=== PATIENT | male | born 1975 | race Caucasian/White ===

== ENCOUNTER 2023-04-12 09:31 | Outpatient (REF) | payer MEDICAID, SELFPAY ==
[2023-04-12 12:52] LABS: Alanine Aminotransferase 8 U/L (0-40); Albumin Level 4.6 g/dL (3.5-5.0); Alkaline Phosphatase 77 U/L (39-117); Aspartate Amino Transferase 16 U/L (5-37); Bilirubin Direct 0.1 mg/dL (0.0-0.5); Bilirubin Total 0.3 mg/dL (0.0-1.0); Total Protein 7.4 g/dL (6.5-8.0)
[2023-04-13 03:01] LABS: Syphilis Screen Nonreactive (Nonreactive)
[2023-04-13 03:34] LABS: HBS Num1 52.22 mIU/mL (0-7.99); HBc Num1 0.09 S/CO (0.00-0.79); HBsAGNum1 0.41 S/CO (0.00-0.99); HIV AB/AG Nonreactive (Nonreactive); HIV Num 1 0.06 S/CO (0.00-0.99); Hepatitis A Antibody IgM 0.16 Index (0-0.79); Hepatitis B Core Antibody Nonreactive (Nonreactive); Hepatitis B Surface Antigen Negative (Negative); ~HepC Num1 0.07 S/CO (0.00-0.79); ~Hepatitis A Antibody IgM Nonreactive (Nonreactive); ~Hepatitis B Surface Antibody REACTIVE (Nonreactive); ~Hepatitis C Antibody Nonreactive (Nonreactive)
[2023-04-15 04:43] LABS: TS Negative Control Passed; TS Panel A 0; TS Panel B 0; TS Positive Control Passed; TSpotTB Negative (Negative)
== END 2023-04-12 09:32 | disposition home or self-care (01) ==
LOC: HO.HHCL 09:31
PROVIDERS: Visit Provider Registered Nurse
DX: Z00.00 Encounter for general adult medical examination without abnormal findings (principal); Z11.4 Encounter for screening for human immunodeficiency virus [HIV]; Z11.1 Encounter for screening for respiratory tuberculosis
CPT/HCPCS: 36415; 80076; 86481; 86704; 86706; 86709; 86780; 86803; 87340; 87389

== ENCOUNTER 2023-09-06 09:37 | Outpatient (REF) | payer MEDICAID, SELFPAY | END 2023-09-06 09:38 | disposition home or self-care (01) | LOC: HO.HHCL 09:37 | PROVIDERS: Visit Provider Family Medicine | DX: R63.6 Underweight (principal) | CPT/HCPCS: 36415; 80053; 82043; 82570; 84134; 84443; 85025 ==

== ENCOUNTER 2023-09-27 09:03 | Outpatient (REF) | payer MEDICAID, SELFPAY ==
[2023-09-27 11:58] LABS: Cholesterol 190 mg/dL (<200); HDL Cholesterol 42 mg/dL (>40); LDL Cholesterol Calculated 122 mg/dL (<100); Triglycerides 131 mg/dL (<150)
[2023-09-27 12:13] LABS: HIV AB/AG Nonreactive (Nonreactive); HIV Num 1 0.05 S/CO (0.00-0.99)
== END 2023-09-27 09:04 | disposition home or self-care (01) ==
LOC: HO.HHCL 09:03
PROVIDERS: Visit Provider Family Medicine
DX: Z00.00 Encounter for general adult medical examination without abnormal findings (principal); Z11.4 Encounter for screening for human immunodeficiency virus [HIV]; R63.6 Underweight
CPT/HCPCS: 36415; 80061; 87389

== ENCOUNTER 2023-12-24 10:32 | Outpatient (REF) | payer MEDICAID, SELFPAY ==
[2023-12-24 12:22] LABS: Anion Gap 11 (12-20); Blood Urea Nitrogen 22 mg/dL (9-16); Calcium 9.3 mg/dL (8.4-10.2); Carbon Dioxide 26 mmol/L (22-29); Chloride 105 mmol/L (96-108); Estimated Glomerular Filt Rate > 60; Glucose Random 100 mg/dL (60-115); Iron 69 mcg/dL (45-160); Percent Iron Saturation 22 % (15-50); Potassium 4.6 mmol/L (3.3-5.1); Sodium 137 mmol/L (135-145); Total Iron Binding Capacity 309 mcg/dL (228-428); Unsaturated Iron Binding 240 ug/dL
[2023-12-24 12:40] LABS: Ferritin 130 ng/mL (20-250); Microalbum/Creatinine Ratio Ur 13.4 ug/mg cr (<30)
[2023-12-24 12:46] LABS: Folate 9.3 ng/mL (> or = 4.0); Vitamin B12 542 pg/mL (200-900)
== END 2023-12-24 10:33 | disposition home or self-care (01) ==
LOC: HO.HHCL 10:32
PROVIDERS: Visit Provider Nurse Practitioner
DX: I15.8 Other secondary hypertension (principal); D64.9 Anemia, unspecified
CPT/HCPCS: 36415; 80048; 82043; 82570; 82607; 82728; 82746; 83540

== ENCOUNTER 2024-10-27 13:32 | Outpatient (REF) | payer MEDICAID, SELFPAY ==
--- OUTSIDE RECORDS SUMMARY | 2024-10-27 15:31 | XMS_ITS | Encounter Summary ---
Author Organization [employer] Address [address] [facility] 7t [place] [address] Care Team Providers Care Printing Technician Name Role Phone Betina Rodriguez LAVELL Primary Care Provider [phone] Reason for Visit * Reason Comments Med Refill Encounter Details Date Type Department Care Team ([facility] st Contact Info) Description 03/10/2024 Refill [facility] [address] [place] [address] Doc Ivory MD [address] [place] [address] Uncomplicated opioid dependence (CMS/HCC) Social History Tobacco Use Types Packs/Day Years Used Date Smoking Tobacco: Every Day Cigarettes 0.2 10 Passive Smoke Exposure: Never Smokeless Tobacco: Never Alcohol Use Standard Drinks/Week Comments Never 0 (1 standard drink = 0.6 oz pur e alcohol) Depression Answer Date Recorded Patient Health Questionnaire-9 Score 0 09/05/2023 Patient Health Questionnaire-9 Score 0 09/05/2023 Last PHQ-9: Questionnaire Data Not on file 0 09/05/2023 Housing Stability Answer Date Recorded What is your housing situation today? I have leslee muniz 09/05/[address] you li ve. Do you have problems with any of the following? None of the above 09/05/2023 Food Insecurity Answer Date Recorded Within the past 12 months, y ou worried that your food would run out before you got money to buy more: Never True 09/05/2023 Within the past 12 months,th e food you bought just didn't last and you didn't have enough money to get more: Never True 11/2023 Transportation Answer Date Recorded In the past 12 months, has l ack of transportation kept you from medical appts, meetings, work or from getting things needed for daily living? No 09/05/2023 Utilities Answer Date Recorded In the past 12 months, has t he electric, gas, oil or water company threatened to shut off services in your home? No 09/05/2023 Depression Answer Date Recorded Patient Health Questionnaire-2 Score 0 09/05/2023 Sex and Gender Information Value Date Recorded Sex Assigned at Male 07/03/2022 10:25 AM EDT Legal Sex Male 10:25 AM EDT Gender Identity Male 07/03/2022 10:25 AM EDT Sexual Orientation Straight 07/03/2022 10 :25 AM EDT documented as of this encounter Plan of Treatment Upcoming Encounters Date Type Department Care Team (Late st Contact Info) Description 01/19/2025 1:00 PM EDT Clinical Support [facility] [address] [place] [address] Magdalena Muhammad RN documented as of this encounter Visit Diagnoses Diagnosis Uncomplicated opioid dependence (CMS/HCC) documented in this encounter Additional Health Concerns Assessment Noted Time PHQ-9 Depression Total Score: 0 09/05/19 24 9:54 AM EST documented as of this encounter Care Teams Printing Technician Relationship Specialty Start Date End Date Betina Rodriguez NP [address] [place] [address] PCP - General Family Medicine 06/08/23 Doc Peck MD [facility] Hematology Oncology [facility], [address] [place] [address] Consulting Physician Hematology and Oncology 08/03/20 documented as of this encounter
--- OUTSIDE RECORDS SUMMARY | 2024-10-27 15:31 | XMS_ITS | Encounter Summary ---
Author Organization [employer] Address [address] [facility] 7t [place] [address] Care Team Providers Care Director Operating Room Name Role Phone Betina Rodriguez LAVELL Primary Care Provider [phone] Reason for Visit * Reason Comments Med Refill Encounter Details Date Type Department Care Team ([facility] st Contact Info) Description 11/19/2023 Refill [facility] [address] [place] [address] Doc Ivory MD [address] [place] [address] Uncomplicated opioid dependence (CMS/HCC) Social History Tobacco [...] Description 01/19/2025 1:00 PM EDT Clinical Support [facility] [address] [place] [address] Magdalena Muhammad RN documented as of this encounter Visit Diagnoses Diagnosis Uncomplicated opioid dependence (CMS/HCC) documented in this encounter Additional Health Concerns Assessment Noted Time PHQ-9 Depression Total Score: 0 09/05/19 24 9:54 AM EST documented as of this encounter Care Teams Director Operating Room Relationship Specialty Start Date End Date Betina Rodriguez NP [address] [place] [address] PCP - General Family Medicine 06/08/23 Doc Peck MD [facility] Hematology Oncology [facility], [address] [place] [address] Consulting Physician Hematology and Oncology 08/03/20 documented as of this encounter
--- OUTSIDE RECORDS SUMMARY | 2024-10-27 15:31 | XMS_ITS | Encounter Summary ---
Author Organization [employer] Address [address] 7t [place] [address] Care Team Providers Care Key Filer Name Role Phone Betina Rodriguez LAVELL Primary Care Provider [phone] Encounter Details Date Type Department Care Team (Latest Contact Info) Description 10/27/2024 Travel Social History Tobacco Use Types Packs/Day Years Used Date Smoking Tobacco: Every Day Cigarettes 0.2 10 Passive Smoke Exposure: Never Smokeless Tobacco: Never Alcohol Use Standard Drinks/Week Comments Never 0 (1 standard drink = 0.6 oz pur e alcohol) Depression Answer Date Recorded Patient Health Questionnaire-9 Score 2 03/26/2024 Patient Health Questionnaire-9 Score 2 03/26/2024 Last PHQ-9: Questionnaire Data Not on file 0 03/26/2024 Housing Stability Answer Date Recorded What is [...] Date Recorded Patient Health Questionnaire-2 Score 0 03/26/2024 Sex and Gender Information Value Date Recorded Sex Assigned at Male 07/03/2022 10:25 AM EDT Legal Sex Male 10:25 AM EDT Gender Identity Male 07/03/2022 10:25 AM EDT Sexual Orientation Straight 07/03/2022 10 :25 AM EDT documented as of this encounter Plan of Treatment Upcoming Encounters Date Type Department Care Team (Late st Contact Info) Description 01/19/2025 1:00 PM EDT Clinical Support [facility] [address] [place] [address] Magdalena Muhammad RN documented as of this encounter Visit Diagnoses Not on filedocumented in this encounter Additional Health Concerns Assessment Noted Time PHQ-9 Depression Total Score: 2 03/26/20 24 9:18 AM EDT documented as of this encounter Care Teams Key Filer Relationship Specialty Start Date End Date Betina Rodriguez NP [address] [place] [address] PCP - General Family Medicine 06/08/23 Doc Peck MD [facility] Hematology Oncology [facility], [address] [place] [address] Consulting Physician Hematology and Oncology 08/03/20 documented as of this encounter
--- OUTSIDE RECORDS SUMMARY | 2024-10-27 15:31 | XMS_ITS | Encounter Summary ---
Author Organization [employer] Address [address] [facility] 7t [place] [address] Care Team Providers Care Burial Vault Setter Name Role Phone Betina Rodriguez LAVELL Primary Care Provider [phone] Reason for Visit * Reason Comments Med Refill Encounter Details Date Type Department Care Team ([facility] st Contact Info) Description 08/25/2024 Refill [facility] [address] [place] [address] Doc Ivory MD [address] [place] [address] Uncomplicated opioid dependence (CMS/HCC) Social History Tobacco [...] Description 01/19/2025 1:00 PM EDT Clinical Support [facility] [address] [place] [address] Magdalena Muhammad RN documented as of this encounter Visit Diagnoses Diagnosis Uncomplicated opioid dependence (CMS/HCC) documented in this encounter Additional Health Concerns Assessment Noted Time PHQ-9 Depression Total Score: 2 03/26/20 24 9:18 AM EDT documented as of this encounter Care Teams Burial Vault Setter Relationship Specialty Start Date End Date Betina Rodriguez NP [address] [place] [address] PCP - General Family Medicine 06/08/23 Doc Peck MD [facility] Hematology Oncology [facility], [address] [place] [address] Consulting Physician Hematology and Oncology 08/03/20 documented as of this encounter
--- OUTSIDE RECORDS SUMMARY | 2024-10-27 15:31 | XMS_ITS | Encounter Summary ---
Author Organization [employer] [facility] Address [address] [place] [address] 7t [place] [address] Care Team Providers Care Players [employer] Representative Name Role Phone Rajwinder Oglesby Laura MANAGER SECURITY Primary Care Provider [phone] Betina Rodriguez RENEWABLE ENERGY TRADER Primary Care Provider [phone] Encounter Details Date Type Department Care Team ([facility] Contact Info) Description 09/15/2022 Orders Only [facility] MED[facility]INE [address] [place] [id number] Magdalena Muhammad RN Social History Tobacco Use Types Packs/Day Years Used Date Smoking Tobacco: Every Day Cigarettes 0.3 10 Passive Smoke Exposure: Never Alcohol Use Standard Drinks/Week Comments Never 0 (1 standard drink = 0.6 oz pur e alcohol) Depression Answer Date Recorded Patient Health Questionnaire-9 Score 0 08/22/2022 Depression Answer Date Recorded Patient Health Questionnaire-2 Score 0 08/22/2022 Sex and Gender Information Value Date Recorded Sex Assigned at Male 07/03/2022 10:25 AM EDT Legal Sex Male 10:25 AM EDT Gender Identity Male 07/03/2022 10:25 AM EDT Sexual Orientation Straight 07/03/2022 10 :25 AM EDT COVID-19 Exposure Response Date Recorded In the last 10 days, have yo u been in contact with someone who was confirmed or suspected to have Coronavirus/COVID-19? No / Unsure 09/05/2022 10:00 AM EST documented as of this encounter Plan of Treatment Upcoming Encounters Date Type Department Care Team ([facility] Contact Info) Description 01/19/2025 1:00 PM EDT Clinical Support [facility] [address] [place] [address] Enko, Magdalena, RN documented as of this encounter Visit Diagnoses Not on filedocumented in this encounter Additional Health Concerns Assessment Noted Time PHQ-9 Depression Total Score: 0 08/22/20 22 1:12 PM EST documented as of this encounter Care Teams Players Club Representative Relationship Specialty Start Date End Date Rajwinder Oglesby FNP PCP - General Family Medicine 07/22/21 06/07/23 Betina Rodriguez NP [address] [place] [address] PCP - General Family Medicine 06/08/23 Doc Peck MD [facility] Hematology Oncology [facility], [address] [place] [address] Consulting Physician Hematology and Oncology 08/03/20 documented as of this encounter
--- OUTSIDE RECORDS SUMMARY | 2024-10-27 15:31 | XMS_ITS | Encounter Summary ---
Author Organization [employer] Address [address] [facility] 7t [place] [address] Care Team Providers Care Analytical Chemistry Teacher Name Role Phone Rajwinder Oglesby Laura INTENSIVE CARE MEDICINE SPECIALIST Primary Care Provider [phone] Betina Rodriguez LONG WINDER TENDER Primary Care Provider [phone] Encounter Details Date Type Department Care Team (Late st Contact Info) Description 09/15/2022 Orders Only [facility] MED[facility]INE [address] [place] [id number] Magdalena Muhammad RN Opioid type dependence, continuous (CMS/HCC) (Primary Dx) Social History Tobacco Use Types Packs/Day Years [...] Encounters Date Type Department Care Team (Late Contact Info) Description 01/19/2025 1:00 PM EDT Clinical Support [facility] [address] [place] [phone] Magdalena Muhammad, RN Scheduled Orders Name Type Priority Associated Diagnoses Orde r Schedule Hepatic Function Panel Lab Routine Opioid type dependence, continuous (CMS/HCC) Expected: 09/15/2022 (Approximate), Expires: 09/15/2023 Hepatitis C Antibody with Reflex to HCV, RNA, Quantitative, Real-Time PCR Lab Routine Opioid type dependence, continuous (CMS/HCC) Expected: 09/15/2022 (Approximate), Expires: 09/15/2023 HIV-1/2 Antigen and Antibodies, Fourth Generation, with Reflexes Lab Routine Opioid type dependence, continuous (CMS/HCC) Expected: 09/15/2022 (Approximate), Expires: 09/15/2023 QUANTIFERON TB GOLD Lab Routine Opioid type dependence, continuous (CMS/HCC) Expected: 09/15/2022 (Approximate), Expires: 09/15/2023 RPR (Monitor) with Reflex to??Titer Lab Routine Opioid type dependence, continuous (CMS/HCC) Expected: 09/15/2022 (Approximate), Expires: 09/15/2023 documented as of this encounter Visit Diagnoses Diagnosis Opioid type dependence, continuous (CMS/HCC)- Primary Opioid type dependence, continuous documented in this encounter Additional Health Concerns Assessment Noted Time PHQ-9 Depression Total Score: 0 08/22/20 22 1:12 PM EST documented as of this encounter Care Teams Analytical Chemistry Teacher Relationship Specialty Start Date End Date Rajwinder Oglesby FNP PCP - General Family Medicine 07/22/21 06/07/23 Betina Rodriguez NP [address] [place] [address] PCP - General Family Medicine 06/08/23 Doc Peck MD [facility] Hematology Oncology [facility], [address] [place] [address] Consulting Physician Hematology and Oncology 08/03/20 documented as of this encounter
--- OUTSIDE RECORDS SUMMARY | 2024-10-27 15:31 | XMS_ITS | Clinical Summary ---
Author Organization [employer] Address [address] [facility] 7[address] [place] [address] Care Team Providers Care Health Records Technology Teacher Name Role Phone Michael Betina LAVELL Primary Care Provider [phone] Allergies Active Allergy Reactions Criticality Noted Date Comments Food 07/31/2022 seafood Shellfish Allergy 01/03/2023 Medications dasatinib (Sprycel) 140 MG chemo tablet Take 1 tablet by mouth 1 (one) time each day. 022 Active Nutritional Supplements (Ensure Plus) liquid drink 1 can 3 times a day as meal supplement 017 Active Blood Pressure kit Active naloxone (Narcan) 4 mg/0.1 mL nasal spray Administer 4 mg into affected nostril(s) if needed for opioid reversal. May repeat every 2-3 minutes if needed, alternating nostrils, until medical assistance becomes available. Active ferrous gluconate (Fergon) 324 (37.5 Fe) MG tabletIndicatio ns:Anemia, unspecified type Take 1 tablet (324 mg) by mouth every other day. With vitamin C on an empty stomach 60 tablet 1 024 Active Ascorbic Acid (vitamin C) 250 MG tabletIndicatio ns:Anemia, unspecified type Take 1 tablet (250 mg) by mouth every other day. With iron on an empty stomach 15 tablet 11 024 2024 Active docusate sodium (Colace) 100 MG capsuleIndicati ons:Uncomplicat ed opioid dependence (CMS/HCC) Take 1 capsule (100 mg) by mouth every 12 (twelve) hours. Prn constipation 60 capsule 3 024 Active olmesartan (BENIcar) 20 MG tabletIndicatio ns:Other secondary hypertension TAKE 1 TABLET BY MOUTH EVERY DAY IN THE MORNING 90 tablet 1 025 Active cetirizine (ZyrTEC) 10 MG tabletIndicatio ns:Seasonal allergies Take 1 tablet (10 mg) by mouth Once per day. 90 tablet 025 2024 Active ibuprofen 400 MG tabletIndicatio ns:Chronic myeloid leukemia (CMS/HCC) Take 1 tablet (400 mg) by mouth every 6 (six) hours if needed for moderate pain. 120 tablet 025 Active buprenorphine-n aloxone (Suboxone) 12-3 MG per sublingual filmIndications :Uncomplicated opioid dependence (CMS/HCC) Place 1 Film under the tongue Once per day. Do not start before October 21, 2024. 28 Film 1 025 2024 Active buprenorphine-n aloxone (Suboxone) 12-3 MG per sublingual filmIndications :Uncomplicated opioid dependence (CMS/HCC) Place 1 Film under the tongue Once per day. 28 Film 1 024 2024 Discontinued(R eorder (will not trigger notification to Pharmacy)) Active Problems Problem Noted Date Diagnosed Date Colon cancer screening 03/27/2024 Assessment & Plan (04/03/2024 9:26 AM EDT): -patient encouraged to undergo testing via colonoscopy given current treatment for CML and13% false positive and 8% false negative ratehowever he declined. Would rather test via cologuard -informed of need to undergo colonoscopy if cologuard positive and verbalize understanding. -will re-order kit and have it sent to alternative address he provided -results will be communicated upon receipt Anemia 03/13/2024 Assessment & Plan (03/27/2024 12:15 PM EDT): -followed by oncology. Will attempt to obtain recent labs -med refill provided Assessment & Plan (03/17/2024 6:25 PM EDT): Lab Results Component Value Date WBC 6.9 09/06/2023 HGB 11.9 (L) 09/06/2023 HCT 36.3 (L) 09/06/2023 MCV 92.6 09/06/2023 PLT 287 09/06/2023 -anemia is likely due to CML -labs ordered for further investigation Routine adult health maintenance 09/26/2023 Assessment & Plan (03/27/2024 12:29 PM EDT): -will have pt scheduled subsequent hepB doses to be obtained at vaccine clinic Assessment & Plan (03/13/2024 3:15 PM EDT): -hepatitis B and PCV 20 vax given today Assessment & Plan (09/26/2023 1:58 PM EST): -pt inquiring about GI referral status for colonoscopy from last visit. Waiting on [facility] for appointment availability. Phone number to specialist office provided for follow-up -declined flu and pneumonia vaccines Underweight 04/06/2023 Assessment & Plan (04/03/2024 9:28 AM EDT): -likely resulting from ongoing CML treatment -continue small frequent meals as tolerated making healthy choices -advised to inquire from oncologist for potential appetite stimulant medication Assessment & Plan (09/05/2023 11:56 AM EST): In the setting of CML, he current using nutritional supplementation. Will send labs. Assessment & Plan (04/29/2023 10:25 PM EDT): Care managed by Oncology Continue Sprycel 140mg daily Refill DME Ensure, Vanilla F/u PRN Other secondary hypertension 08/22/2022 Overview (08/22/2022): Secondary to Sprycel use Assessment & Plan (03/13/2024 3:14 PM EDT): -BP stable on benicar 20 mg -continue daily monitoring -microalbuminuria: repeat testing ordered today -elevated BUN which may be due to oral chemo treatment Lab Results Component Value Date BUN 22 (H) 09/06/2023 -increased hydration advised. Will re-evaluate with next labs -follow-up in 3-4 months on chronic conditions Assessment & Plan (09/26/2023 1:57 PM EST): -BP stable on benicar 20 mg -continue daily monitoring -slight microalbuminuria: 36.1 on (09/05/23) in the setting of normal Cr (1.01). Recheck in 3 months and consider nephrology referral is still elevated -slightly elevated BUN, increased hydration advised. Will re-evaluate with next labs -follow-up in 3-4 months on chronic conditions Assessment & Plan (09/05/2023 11:56 AM EST): Uncontrolled. Reports elevated BP due to Sprycel. Recommended monitoring at home and bring records to PCP, scheduled f./up appt. Future Appointments Date Time Provider Department Center 09/26/2023 9:00 AM Betina Rodriguez NP MEDICINE [facility] 10/01/2023 1:15 PM Magdalena Muhammad RN MEDICINE [facility] Assessment & Plan (04/29/2023 10:21 PM EDT): Continue Olmesartan 20mg daily Check at home PRN Monitor for sx of hypotension and hypertension Followup 3 months or sooner PRN Assessment & Plan (08/22/2022 1:34 PM EST): Pt has no BP machine or log with him. Unable to check BP status. Will followup in 2 weeks in person to monitor BP If BP still > 140/90 will increase Lisinopril dose to 20mg. Uncomplicated opioid dependence 07/31/2022 Overview (04/29/2023): In remission Stable with Suboxone 12-3mg 1 film daily Managed by OBAT Provider, CRS Tobacco dependence syndrome 07/31/2022 Assessment & Plan (04/29/2023 10:22 PM EDT): Declines NRT F/u PRN with new PCP History of blood transfusion 07/31/2022 Astigmatism of both eyes 04/06/2022 Macular subretinal hemorrhage 04/06/2022 Anxiety 2021 Chronic myeloid leukemia 07/22/2021 Overview (03/18/2023): Care managed by Oncology Dasatinib 140 mg daily F/u 3 months Assessment & Plan (03/13/2024 3:03 PM EDT): -followed by oncology every 6 months -continues on Dasatinib 140 mg -ibuprofen refilled for intermittent pain Assessment & Plan (04/29/2023 10:25 PM EDT): Care managed by Oncology Continue Sprycel 140mg daily Refill DME Ensure, Vanilla F/u PRN Encounters Date Type Department Care Team Description 10/27/2024 2:00 PM EST Office Visit [facility] [address] [place] [phone] Doc Ivory MD Uncomplicated opioid dependence ([facility]/HCC) (Primary Dx) 10/27/2024 Travel 10/14/2024 Refill [facility] [address] [place] [id number] Magdalena Muhammad RN Uncomplicated opioid dependence (CMS/HCC) 10/14/2024 Refill [facility] [address] [place] [address] Magdalena Muhammad RN Uncomplicated opioid dependence ([facility]/HCC) 10/14/2024 Refill [facility] [address] [place] [phone] Magdalena Muhammad RN 10/06/2024 Orders Only [facility] [address] [place] [phone] Magdalena Muhammad RN Uncomplicated opioid dependence (CMS/HCC) 09/26/2024 10:15 AM EST Office Visit [facility] [address] [place] [phone] Betina Rodriguez NP Other secondary hypertension (Primary Dx); Chronic myeloid leukemia (CMS/HCC); Other hyperlipidemia; Dietary counseling; Exercise counseling; Routine adult health maintenance 09/26/2024 Travel 09/19/2024 Refill [facility] [address] [place] [address] Betina Rodriguez NP Seasonal allergies 09/19/2024 Telephone [facility] [address] [place] [phone] Sergey JuveJOHAN galindo chartprep 09/08/2024 Refill [facility] [address] [place] [address] Betina Rodriguez NP Other secondary hypertension 09/01/2024 2:00 PM EST Telemedicine [facility] [address] [place] [address] Doc Ivory MD Uncomplicated opioid dependence (CMS/HCC) (Primary Dx) 09/01/2024 Travel 08/25/2024 Refill [facility] [address] [place] [address] Doc Ivory MD Uncomplicated opioid dependence (CMS/HCC) 08/22/2024 Refill [facility] [address] [place] [address] Magdalena Muhammad RN Uncomplicated opioid dependence ([facility]/HCC) 08/22/2024 Refill [facility] [address] [place] [address] Magdalena Muhammad RN from Last 3 Months Immunizations Name Administration Dates Next Due Hep B, adult 12/21/2023 Moderna Covid-19 Vaccine 12+ 03/29/2021,03/01/20 21 Pneumococcal Conjugate PCV 20 12/21/2023 Tdap 10/13/2016 Social History Tobacco Use Types Packs/Day Years Used Date Smoking Tobacco: Every Day Cigarettes 0.2 10 Passive Smoke Exposure: Never Smokeless Tobacco: Never Tobacco Cessation:Ready to Q uit: Not Asked; Counseling Given: Not Answered Alcohol Use Standard Drinks/Week Comments Never 0 [...] Orientation Straight 07/03/2022 10 :25 AM EDT Last Filed Vital Signs Vital Sign Reading Time Taken Comments Blood Pressure 129/75 09/26/2024 9:59 AM EST Pulse 78 09/26/2024 9:59 AM EST Temperature 37.5 ??C (99.5 ??F) 09/26/2024 9:59 AM ES T Respiratory Rate 21 09/26/2024 9:59 AM EST Oxygen Saturation 97% 09/26/2024 9:59 AM EST Inhaled Oxygen Concentration - - Weight 59.9 kg (132 lb) 09/26/2024 9:59 AM EST Height 180.3 cm (5' 11 ) 09/26/2024 9:59 AM EST Body Mass Index 18.41 09/26/2024 9:59 AM EST Plan of Treatment Upcoming Encounters Date Type Department Care Team (Late st Contact Info) Description 01/19/2025 1:00 PM EDT Clinical Support [facility] [address] [place] [address] Magdalena Muhammad, [employer] Health Maintenance Due Date Last Done Comments CT Colonography 1976 Colonoscopy 1976 Colorectal Cancer Screening 1976 FIT DNA/Cologuard 1976 FIT 1976 FOBT 1976 Sigmoidoscopy 1976 Family Planning (PISQ) 1991 Hepatitis A Vaccines (1 of 2 - Risk 2-dose series) 1995 Zoster Vaccines (1 of 2) 1995 COVID-19 Vaccine (3 - Modern a risk series) 04/26/2021 03/29/2021, 03/01/2021 Influenza Vaccine (#1) 2024 SDOH Screening 09/05/2024 09/05/2023 Depression Screening 03/26/2025 03/26/2024, 03/26/2024 Alcohol/Substance Use Screening 09/26/2025 09/26/2024 Tobacco Screening 10/27/2025 10/27/2024 DTaP/Tdap/Td Vaccines (2 - T d or Tdap) 10/13/2026 10/13/2016 Lipid Panel 09/27/2028 09/27/2023 RSV Patients and Patients Aged 60 years or older (1 - 1-dose 75+ series) 2051 Hepatitis C Screening Completed 04/12/2023 , 08/05/2021 HIV Screening Completed 09/27/2023, 04/12/2023, 08/05/2021 Hepatitis B Vaccines Discontinued 12/21/2023 Pneumococcal Vaccine: Pediatrics (0 to 5 Years) and At-Risk Patients (6 to 49) Years) Completed 12/21/2023 HIB Vaccines Aged Out No longer eligi ble based on patient's age to complete this topic HPV Vaccines Aged Out No longer eligi ble based on patient's age to complete this topic IPV Vaccines Aged Out No longer eligi ble based on patient's age to complete this topic Meningococcal Vaccine Aged Out No fiona yelena eligible based on patient's age to complete this topic RSV under 20 months Aged Out No longe r eligible based on patient's age to complete this topic Rotavirus Vaccines Aged Out No longer eligible based on patient's age to complete this topic Procedures Procedure Name Priority Date/Time Associated Diagnosis Comments POCT NEHAL-14 URINE DRUG SCREEN Routine 10/27/2024 1:46 PM EST Uncomplicated opioid dependence (CMS/HCC) LIPID PANEL, STANDARD Routine 09/27/2023 9:45 AM EST Underweight HIV 1/2 ANTIGEN/ANTIBODY, FOURTH GENERATION W/RFL Routine 09/27/2023 9:08 AM EST HEPATITIS PANEL, GENERAL Routine 04/12/2023 9:35 AM EDT Health care maintenance from Last 3 Months or Most Recently Relevant to Health Maintenance Results * POCT NEHAL-14 Urine Drug Screen (10/27/2024 1:46 PM EST) THC Positive Cocaine Screen, Urine Negative Opiate Screen, Urine Negative Methamphetamine Screen Urine Negative Amphetamine Screen, Urine Negative Benzodiazepines Screen, Urine Negative Barbiturate Screen, Urine Negative Methadone Screen, Urine Negative Buprenophine Screen, Urine Positive TCA, Urine Negative MDMA Urine Negative ng/mL Oxycodone Screen, Urine Negative Phencyclidine (PCP), Urine Negative Propoxyphene, Urine Negative Fentanyl, Urine Negative Urine Urine specimen obtained by clean catch procedure / Unknown 10/27/2024 1:46 PM EST Doc Ivory MD POINT OF CARE TEST ENTER/EDIT OR DERABLES Final Result * (ABNORMAL) Lipid Panel, Standard (09/27/2023 9:45 AM EST) Triglycerides 131 <150 mg/dL [facility] Comment:Desirable Triglyceri de: less than 150 mg/dLBorderline High Triglyceride 150-199 mg/dLHigh Triglyceride: 200-499 mg/dLVery High Triglyceride: greater than or equal to 5OO mg/dL Cholesterol 190 <200 mg/dL [facility] Comment:Desirable Cholestero l: less than 200 mg/dLBorderline High Cholesterol: 200-239 mg/dLHigh Cholesterol: greater than 239 mg/dL LDL Cholesterol Calculated 122(H) <100 mg/dL [facility] Comment:Desirable LDL: less than 100 mg/dLNear Optimal/Above Optimal LDL: 110- 129 mg/dLBorderline High LDL: 130-159 mg/dLHigh LDL: 160-189 mg/dLVery High LDL: greater than or equal to 190 mg/dL HDL Cholesterol 42 >40 mg/dL [facility] Comment:Desirable HDL: great er than 40 mg/dL Note: This HDL assay may give artificially low results in patients with liver disease. Blood Venous blood specimen / Unknown 09/27/2023 9:45 AM EST 09/27/2023 11:36 AM EST us Yuliana Mojica MD LAB BLOOD ORDERABLES Final Re sult Performing Organization Address [facility] Co de Phone Number [facility] [address] [place] [address] [phone] * HIV-1/2 Antigen and Antibodies, Fourth Generation, with Reflexes (09/27/2023 9:08 AM EST) HIV AB/AG Nonreactive Nonreactive [facility] Comment:HIV-1 p24 Ag and/or HIV-1/HIV-2 Ab not detected.A test result that is nonreactive does not exclude thepossibility of exposure to or infection with HIV-1 and/orHIV-2. Nonreactive results in this assay for individualswith prior exposure to HIV-1 and/or HIV-2 may be due toantigen and antibody levels that are below the limit ofdetection of this assay.The Proterro HIV Ag/Ab Combo assay result andsupplemental assay results should be interpreted inconjunction with the patient's clinical presentation,history and other laboratory results. If the results areinconsistent with clinical evidence, additional testing issuggested to confirm the result. 09/27/2023 9:08 AM EST 09/27/2023 11:36 AM EST us Yuliana Mojica MD LAB BLOOD ORDERABLES Final Re sult Performing Organization Address City/[facility]/ZIP Co de Phone Number [facility] [address] [place] [address] [phone] Hepatitis Panel, General (04/12/2023 9:35 AM EDT) Hepatitis A IgM Nonreactive Nonreactive [facility] Comment:IgM antibodies to PRASAD V not detected; does not exclude earlyacute or recovered HAV infection. ~Hepatitis B Surface Antibody REACTIVE Nonreactive [facility] Comment:REACTIVE: > 11.99 mI U/mL Hepatitis B Core Antibody Nonreactive Nonreactive [facility] Hepatitis C Antibody Nonreactive Nonreactive [facility] Comment:Antibodies to HCV no t detected; does not exclude early acuteHCV infection. Hepatitis B Surface Ag Negative Negative [facility] Blood 04/12/2023 9:35 AM EDT 04/12/2023 11:32 AM EDT Rajwinder Sanchez Mendel CEMENT STORAGE WORKER LAB BLOOD ORDERABLES Final Result [facility] [address] [place] [address] [phone] from Last 3 Months or Most Recently Relevant to Health Maintenance Insurance [facility] C3 HSN FULL Care Teams Health Records Technology Teacher Relationship Specialty Start Date End Date Betina Rodriguez NP [address] [place] [id number] PCP - General Family Medicine 06/08/23 Doc Peck MD [facility] Hematology Oncology [facility], [address] [place] [address] Consulting Physician Hematology and Oncology 08/03/20
--- OUTSIDE RECORDS SUMMARY | 2024-10-27 15:31 | XMS_ITS | Encounter Summary ---
Author Organization [employer] Address [address] [facility] [address] [place] [address] Care Team Providers Care Boiler House Mechanic Name Role Phone Betina Rodriguez LAVELL Primary Care Provider [phone] Reason for Visit * Reason Onset Date Comments Med Refill 10/14/2024 Encounter Details Date Type Department Care Team ([facility] st Contact Info) Description 10/14/2024 Refill [facility] [address] [place] [address] Magdalena Muhammad RN Social History Tobacco Use [...] Description 01/19/2025 1:00 PM EDT Clinical Support [facility] [address] [place] [address] Magdalena Muhammad RN documented as of this encounter Visit Diagnoses Not on filedocumented in this encounter Additional Health Concerns Assessment Noted Time PHQ-9 Depression Total Score: 2 03/26/20 24 9:18 AM EDT documented as of this encounter Care Teams Boiler House Mechanic Relationship Specialty Start Date End Date Betina Rodriguez NP [address] [place] [address] PCP - General Family Medicine 06/08/23 oDc Peck MD [facility] Hematology Oncology [facility], [address] [place] [address] Consulting Physician Hematology and Oncology 08/03/20 documented as of this encounter
--- OUTSIDE RECORDS SUMMARY | 2024-10-27 15:31 | XMS_ITS | Encounter Summary ---
Author Organization [employer] Address [address] [place] [address] [address] [place] [address] Care Team Providers Care Nursing Informatics Specialist Name Role Phone Rajwinder OglesbyP Primary Care Provider [phone] Betina Rodriguez NP Primary Care Provider [phone] Reason for Visit * Reason Comments Med Refill Encounter Details Date Type Department Care Team ([facility] Contact Info) Description 09/03/2022 Refill [facility] [address] [place] [address] Rajwinder Oglesby FNP [address] [place] [address] Dept [place] [address] Social History Tobacco Use Types Packs/Day Years Used Date Smoking Tobacco: Never Passive Smoke Exposure: Never Alcohol Use Standard [...] Upcoming Encounters Date Type Department Care Team ([facility] Contact Info) Description 01/19/2025 1:00 PM EDT Clinical Support [facility] [address] [place] [address] Magdalena Muhammad RN documented as of this encounter Visit Diagnoses Not on filedocumented in this encounter Additional Health Concerns Assessment Noted Time PHQ-9 Depression Total Score: 0 08/22/20 22 1:12 PM EST documented as of this encounter Care Teams Nursing Informatics Specialist Relationship Specialty Start Date End Date Rajwinder Oglesby FNP PCP - General Family Medicine 07/22/21 06/07/23 Betina Rodriguez NP [address] [place] [address] PCP - General Family Medicine 06/08/23 Doc Peck MD [facility] Hematology Oncology [facility], [address] [place] [phone] Consulting Physician Hematology and Oncology 08/03/20 documented as of this encounter
--- OUTSIDE RECORDS SUMMARY | 2024-10-27 15:31 | XMS_ITS | Encounter Summary ---
Author Organization [employer] Address [address] [facility] 7t [place] [address] Care Team Providers Care Mri Ct Tech Name Role Phone Michael Betina LAVELL Primary Care Provider [phone] Reason for Visit * Reason Comments OBAT Encounter Details Date Type Department Care Team (Latest Contact Info) Description 10/27/2024 2:00 PM EST Office Visit [facility] MEDICINE [address] [place] [address] Doc Ivory MD [address] [place] [address] Uncomplicated opioid dependence (CMS/HCC) (Primary Dx) Social History Tobacco Use [...] AM EDT documented as of this encounter Progress Notes * Doc Ivory MD - 10/27/2024 2:00 PM EST Subjective Patient ID: Gomez Lopez is a 49 y.o. male. HPI Patient has been in the MAT program for 4 years 2 months. Intake date: 08/04/21. Current Suboxone dose of 12/3 mg daily with appointments on a 8 week schedule. Behavioral health provider: Roderick cricket coach: Tu LFTs last done 10/27/2024 Hep A status: Immune Hep B status: Immune Hep C status: non-reactive 04/12/23 HIV status: non-reactive 04/12/23 Last PCP appt: 03/26/24 JOHAN BOSS reviewed by provider Amos reviewed. Taking Suboxone as prescribed. No illicit substances. Colace relieves constipation, states does not need refill. States at next visit would like to discuss reducing Suboxone dose. Oral chemotherapy dose for CML causes him to feel tired at times. Has oncology katharina't. Q 6 months. Has [facility] therapist Supriya in [place]. Declines speaking with recovery operator helper. Smokes weed daily. No EtOH. Smokes 3 cigarettes/day. Declines smoking cessation assistance. Lives with mother. Has 5 children. 13 y.o. daughter lives with her mother Others are adults. Suboxone dental care discussed; given written instructions at last visit. The following portions of the chart were reviewed this encounter and updated as appropriate: Review of Systems Constitutional: Negative for fever. Respiratory: Negative for shortness of breath. Cardiovascular: Negative for chest pain. Gastrointestinal: Negative for abdominal pain. Skin: Negative for rash. Neurological: Negative for headaches. Objective Physical Exam Vitals and nursing note reviewed. Constitutional: Appearance: Normal appearance. HENT: Head: Normocephalic and atraumatic. Nose: Nose normal. Eyes: Conjunctiva/sclera: Conjunctivae normal. Pupils: Pupils are equal, round, and reactive to light. Pulmonary: Effort: Pulmonary effort is normal. Skin: General: Skin is warm and dry. Neurological: Mental Status: He is alert. Gait: Gait is intact. Psychiatric: Mood and Affect: Mood and affect normal. Behavior: Behavior normal. Procedures Assessment/Plan Uncomplicated opioid dependence (CMS/HCC) Recovery support, harm reduction (including Narcan) and behavioral health attendance reviewed. Continue Suboxone 12/3 mg on 8 week schedule. documented in this encounter Plan of Treatment Upcoming Encounters Date Type Department Care Team (Late st Contact Info) Description 01/19/2025 1:00 PM EDT Clinical Support [address] [address] Magdalena Muhammad RN documented as of this encounter Procedures Procedure Name Priority Date/Time Associated Diagnosis Comments POCT NEHAL-14 URINE DRUG SCREEN Routine 10/27/2024 1:46 PM EST Uncomplicated opioid dependence (CMS/HCC) documented in this encounter Results * POCT NEHAL-14 Urine Drug Screen [...] CARE TEST ENTER/EDIT OR DERABLES Final Result documented in this encounter Visit Diagnoses Diagnosis Uncomplicated opioid dependence (CMS/HCC)- Primary documented in this encounter Additional Health Concerns Assessment Noted Time PHQ-9 Depression Total Score: 2 03/26/20 24 9:18 AM EDT documented as of this encounter Care Teams Mri Ct Tech Relationship Specialty Start Date End Date Betina Rodriguez NP [address] [place] [address] PCP - General Family Medicine 06/08/23 Doc Peck MD [facility] Hematology Oncology [facility], [address] [place] [address] Consulting Physician Hematology and Oncology 08/03/20 documented as of this encounter
--- OUTSIDE RECORDS SUMMARY | 2024-10-27 15:31 | XMS_ITS | Encounter Summary ---
Author Organization [employer] Address [address] [facility] [address] 7t [place] [address] Care Team Providers Care Visual Manager Name Role Phone Betina Rodriguez LAVELL Primary Care Provider [phone] Reason for Visit * Reason Onset Date Comments Med Refill 10/14/2024 Encounter Details Date Type Department Care Team ([facility] st Contact Info) Description 10/14/2024 Refill [facility] MEDICINE [address] [place] [address] Magdalena Muhammad RN Uncomplicated opioid dependence (CMS/HCC) Social History Tobacco [...] Description 01/19/2025 1:00 PM EDT Clinical Support [facility] MEDICINE [address] [place] [address] Magdalena Muhammad RN documented as of this encounter Visit Diagnoses Diagnosis Uncomplicated opioid dependence (CMS/HCC) documented in this encounter Additional Health Concerns Assessment Noted Time PHQ-9 Depression Total Score: 2 03/26/20 24 9:18 AM EDT documented as of this encounter Care Teams Visual Manager Relationship Specialty Start Date End Date Betina Rodriguez NP [address] [place] [address] PCP - General Family Medicine 06/08/23 Doc Peck MD [facility] Hematology Oncology [facility], [address] [place] [address] Consulting Physician Hematology and Oncology 08/03/20 documented as of this encounter
--- OUTSIDE RECORDS SUMMARY | 2024-10-27 15:31 | XMS_ITS | Encounter Summary ---
Author Organization [employer] Address [address] [facility] [address] 7t [place] [address] Care Team Providers Care Latin Dance Instructor Name Role Phone Michael Betina LAVELL Primary Care Provider [phone] Encounter Details Date Type Department Care Team ([facility] st Contact Info) Description 10/06/2024 Orders Only [facility] MEDICINE [address] [place] [address] Magdalena Muhammad RN Uncomplicated opioid dependence (CMS/[facility]) Social History Tobacco Use Types Packs/Day Years [...] Description 01/19/2025 1:00 PM EDT Clinical Support [facility] MEDICINE [address] [place] [address] Magdalena Muhammad RN Scheduled Orders Name Type Priority Associated Diagnoses Orde r Schedule Hepatic Function Panel Lab Routine Uncomplicated opioid dependence (CMS/HCC) Expected: 10/06/2024 (Approximate), Expires: 10/06/2025 Hepatitis C Antibody with Reflex to HCV, RNA, Quantitative, Real-Time PCR Lab Routine Uncomplicated opioid dependence (CMS/HCC) Expected: 10/06/2024 (Approximate), Expires: 10/06/2025 HIV-1/2 Antigen and Antibodies, Fourth Generation, with Reflexes Lab Routine Uncomplicated opioid dependence (CMS/HCC) Expected: 10/06/2024 (Approximate), Expires: 10/06/2025 Syphilis Screen Lab Routine Uncomplicated opioid dependence (CMS/HCC) Expected: 10/06/2024 (Approximate), Expires: 10/06/2025 T-[email or web address] Lab Routine Uncomplicated opioid dependence (CMS/HCC) Expected: 10/06/2024 (Approximate), Expires: 10/06/2025 documented as of this encounter Visit Diagnoses Diagnosis Uncomplicated opioid dependence (CMS/HCC) documented in this encounter Additional Health Concerns Assessment Noted Time PHQ-9 Depression Total Score: 2 03/26/20 24 9:18 AM EDT documented as of this encounter Care Teams Latin Dance Instructor Relationship Specialty Start Date End Date Betina Rodriguez NP [address] [place] [address] PCP - General Family Medicine 06/08/23 Doc Peck MD [facility] Hematology Oncology [facility], [facility] [place] [address] Consulting Physician Hematology and Oncology 08/03/20 documented as of this encounter
--- OUTSIDE RECORDS SUMMARY | 2024-10-27 15:31 | XMS_ITS | Encounter Summary ---
Author Organization [employer] [facility] Address [address] [place] [address] 7t [place] [address] Care Team Providers Care Launch Operator Name Role Phone Rajwinder Oglesby Larua CENTRAL OFFICE TECHNICIAN Primary Care Provider [phone] Betina Rodriguez STEEL SASH ERECTOR Primary Care Provider [phone] Encounter Details Date Type Department Care Team ([facility] Contact Info) Description 09/15/2022 Orders Only [facility] MEDICINE [address] [place] [id number] Magdalena Muhammad RN Social History Tobacco Use [...] Upcoming Encounters Date Type Department Care Team ([facility] Contact Info) Description 01/19/2025 1:00 PM EDT Clinical Support [facility] MEDICINE [address] [place] [address] Enko, Magdalena, RN documented as of this encounter Visit Diagnoses Not on filedocumented in this encounter Additional Health Concerns Assessment Noted Time PHQ-9 Depression Total Score: 0 08/22/20 22 1:12 PM EST documented as of this encounter Care Teams Launch Operator Relationship Specialty Start Date End Date Rajwinder Oglesby FNP PCP - General Family Medicine 07/22/21 06/07/23 Betina Rodriguez NP [address] [place] [address] PCP - General Family Medicine 06/08/23 Doc Peck MD [facility] Hematology Oncology [facility], [address] [place] [address] Consulting Physician Hematology and Oncology 08/03/20 documented as of this encounter
--- OUTSIDE RECORDS SUMMARY | 2024-10-27 15:31 | XMS_ITS | Encounter Summary ---
Author Organization [employer] Address [address] [facility] 7t [place] [address] Care Team Providers Care Smalltalk Developer Name Role Phone Betina Rodriguez LAVELL Primary Care Provider [phone] Reason for Visit * Reason Comments Med Refill Encounter Details Date Type Department Care Team ([facility] st Contact Info) Description 09/21/2023 Refill [facility] MEDICINE [address] [place] [address] Doc Ivory MD [address] [place] [address] Uncomplicated opioid dependence (CMS/HCC) Social History Tobacco [...] Description 01/19/2025 1:00 PM EDT Clinical Support [facility] MEDICINE [address] [place] [address] Magdalena Muhammad RN documented as of this encounter Visit Diagnoses Diagnosis Uncomplicated opioid dependence (CMS/HCC) documented in this encounter Additional Health Concerns Assessment Noted Time PHQ-9 Depression Total Score: 0 09/05/19 24 9:54 AM EST documented as of this encounter Care Teams Smalltalk Developer Relationship Specialty Start Date End Date Betina Rodriguez NP [address] [place] [address] PCP - General Family Medicine 06/08/23 Doc Peck MD [facility] Hematology Oncology [facility], [address] [place] [address] Consulting Physician Hematology and Oncology 08/03/20 documented as of this encounter
--- OUTSIDE RECORDS SUMMARY | 2024-10-27 15:31 | XMS_ITS | Encounter Summary ---
Author Organization [employer] Address [address] [facility] [address] 7t [place] [address] Care Team Providers Care Iron Setter Name Role Phone Betina Rodriguez LAVELL Primary Care Provider Reason for Visit * Reason Onset Date Comments Med Refill 10/14/2024 Encounter Details Date Type Department Care Team ([facility] st Contact Info) Description 10/14/2024 Refill [facility] MEDICINE [address] [place] [address] Magdalena Muhammad RN Uncomplicated opioid dependence (CMS/HCC) [...] Description 01/19/2025 1:00 PM EDT Clinical Support [facility] MEDICINE [address] [place] [address] Magdalena Muhammad RN documented as of this encounter Visit Diagnoses Diagnosis Uncomplicated opioid dependence (CMS/HCC) documented in this encounter Additional Health Concerns Assessment Noted Time PHQ-9 Depression Total Score: 2 03/26/20 24 9:18 AM EDT documented as of this encounter Care Teams Iron Setter Relationship Specialty Start Date End Date Betina Rodriguez NP [address] [place] [address] PCP - General Family Medicine 06/08/23 Doc Peck MD [facility] Hematology Oncology [facility], [address] [place] [address] Consulting Physician Hematology and Oncology 08/03/20 documented as of this encounter
--- OUTSIDE RECORDS SUMMARY | 2024-10-27 15:31 | XMS_ITS | Encounter Summary ---
Author Organization [employer] [facility] Address [address] [place] [address] 7 [place] [address] Care Team Providers Care Trust Clerk Name Role Phone Rajwinder Oglesby Primary Care Provider [phone] Betina Rodriguez NP Primary Care Provider [phone] Encounter Details Date Type Department Care Team (Late st Contact Info) Description 07/31/[address] [facility] MEDICINE [address] [place] [address] ProviderValentine MD Social History Tobacco Use Types Packs/Day Years Used Date Smoking Tobacco: Never Assessed Sex and Gender Information Value Date Recorded Sex Assigned at Male 07/03/2022 10:25 AM EDT Legal Sex Male 10:25 AM EDT Gender Identity Male 07/03/2022 10:25 AM EDT Sexual Orientation Straight 07/03/2022 10 :25 AM EDT documented as of this encounter Plan of Treatment Upcoming Encounters Date Type Department Care Team (Late st Contact Info) Description 01/19/2025 1:00 PM EDT Clinical Support [address] [address] Magdalena Muhammad RN documented as of this encounter Visit Diagnoses Not on filedocumented in this encounter Care Teams Trust Clerk Relationship Specialty Start Date End Date Rajwinder Oglesby FNP PCP - General Family Medicine 07/22/21 06/07/23 Betina Rodriguez NP [address] [place] [address] PCP - General Family Medicine 06/08/23 Doc Peck MD [facility] Hematology Oncology [facility], [address] [place] [address] Consulting Physician Hematology and Oncology 08/03/20 documented as of this encounter
--- OUTSIDE RECORDS SUMMARY | 2024-10-27 15:31 | XMS_ITS | Encounter Summary ---
Author Organization [email or web address] Address [address] [place] [address] 7 [place] [address] Care Team Providers Care Cafeteria Server Name Role Phone Rajwinder Oglesby TRANSPORTATION AID Primary Care Provider [phone] Betina Rodriguez GRAIN CLEANER Primary Care Provider [phone] Reason for Visit * Reason Comments Med Refill Encounter Details Date Type Department Care Team ([facility] Contact Info) Description 03/12/2023 Refill [facility] MEDICINE [address] [place] [address] Doc Ivory MD [address] [place] [address] Uncomplicated opioid dependence (CMS/HCC) Social History Tobacco [...] Upcoming Encounters Date Type Department Care Team ([facility] Contact Info) Description 01/19/2025 1:00 PM EDT Clinical Support [facility] MEDICINE [address] [place] [address] Magdalena Muhammad RN documented as of this encounter Visit Diagnoses Diagnosis Uncomplicated opioid dependence (CMS/HCC) documented in this encounter Additional Health Concerns Assessment Noted Time PHQ-9 Depression Total Score: 0 08/22/20 22 1:12 PM EST documented as of this encounter Care Teams Cafeteria Server Relationship Specialty Start Date End Date Rajwinder Oglesby FNP PCP - General Family Medicine 07/22/21 06/07/23 Betina Rodriguez NP [address] [place] [address] PCP - General Family Medicine 06/08/23 Doc Peck MD [facility] Hematology Oncology [facility], [address] [place] [address] Consulting Physician Hematology and Oncology 08/03/20 documented as of this encounter
[2024-10-27 17:21] LABS: Alanine Aminotransferase 11 U/L (0-40); Albumin Level 4.5 g/dL (3.5-5.0); Aspartate Amino Transferase 28 U/L (5-37); Bilirubin Direct < 0.2 mg/dL (0.0-0.5); Bilirubin Total 0.2 mg/dL (0.0-1.0); Total Protein 7.7 g/dL (6.5-8.0)
[2024-10-27 17:54] LABS: Alkaline Phosphatase 89 U/L (39-117)
[2024-10-28 08:41] LABS: Syphilis Screen Nonreactive (Nonreactive)
[2024-10-28 08:42] LABS: HIV AB/AG Nonreactive (Nonreactive); HIV Num 1 0.06 S/CO (0.00-0.99); ~HepC Num1 0.09 S/CO (0.00-0.79); ~Hepatitis C Antibody Nonreactive (Nonreactive)
[2024-10-30 12:54] LABS: TS Negative Control Passed; TS Panel A 0; TS Panel B 0; TS Positive Control Passed; TSpotTB Negative (Negative)
== END 2024-10-27 13:33 | disposition home or self-care (01) ==
LOC: HO.HHCL 13:32
PROVIDERS: Visit Provider Emergency Medicine
DX: F11.20 Opioid dependence, uncomplicated (principal); Z11.1 Encounter for screening for respiratory tuberculosis; Z11.59 Encounter for screening for other viral diseases
CPT/HCPCS: 36415; 80076; 86481; 86780; 86803; 87389

== ENCOUNTER 2025-03-30 08:56 | Outpatient (REF) | payer MEDICAID, SELFPAY ==
--- OUTSIDE RECORDS SUMMARY | 2025-03-30 09:30 | XMS_ITS | Clinical Summary ---
Author Organization [employer] Address [address] [facility] [address] [place] [address] Care Team Providers Care Radio Message Router Name Role Phone Betina Rodriguez NP Primary Care Provider Allergies Active Allergy Reactions Criticality Noted Date [...] empty stomach 60 tablet 1 024 Active docusate sodium (Colace) 100 MG capsuleIndicati ons:Uncomplicat ed opioid dependence (CMS/HCC) TAKE 1 CAPSULE BY MOUTH EVERY TWELVE HOURS NEEDED FOR CONSTIPATION 180 capsule 1 025 Active ibuprofen 400 MG tabletIndicatio ns:Chronic myeloid leukemia (CMS/HCC) Take 1 tablet (400 mg) by mouth every 6 (six) hours if needed for moderate pain. 120 tablet 025 Active buprenorphine-n aloxone (Suboxone) 12-3 MG per sublingual filmIndications :Uncomplicated opioid dependence (CMS/HCC) Place 1 Film under the tongue Once per day. 28 Film 2 025 2024 Active olmesartan (BENIcar) 20 MG tabletIndicatio ns:Other secondary hypertension TAKE 1 TABLET BY MOUTH EVERY MORNING 90 tablet 1 025 Active Ascorbic Acid (vitamin C) 250 MG tabletIndicatio ns:Anemia, unspecified type Take 1 tablet (250 mg) by mouth every other day. With iron on an empty stomach 15 tablet 11 024 2024 olmesartan (BENIcar) 20 MG tabletIndicatio ns:Other secondary hypertension TAKE 1 TABLET BY MOUTH EVERY DAY IN THE MORNING 90 tablet 1 025 2024 Discontinued cetirizine (ZyrTEC) 10 MG tabletIndicatio ns:Seasonal allergies Take 1 tablet (10 mg) by mouth Once per day. 90 tablet 025 2024 Discontinued(M ed list cleanup (will not trigger notification to Pharmacy)) buprenorphine-n aloxone (Suboxone) 12-3 MG per sublingual filmIndications :Uncomplicated opioid dependence (CMS/HCC) Place 1 Film under the tongue Once per day. 28 Film 1 025 2024 Discontinued(R eorder (will not trigger notification to Pharmacy)) Active Problems Problem Noted Date Diagnosed Date Colon cancer screening 03/27/2024 Assessment & Plan (03/27/2025 6:28 PM EDT): -patient is encouraged to complete testing with Cologuard in his possession Assessment & Plan (04/03/2024 9:26 AM EDT): [...] for colonoscopy from last visit. Waiting on [facility] for appointment availability. Phone number to specialist office provided for follow-up -declined flu and pneumonia vaccines Underweight 04/06/2023 Assessment & Plan (03/27/2025 6:27 PM EDT): -improving -documented 1lbs weight gain since last encounter -encouraged continued small frequent meals Assessment & Plan (04/03/2024 9:28 AM EDT): [...] Secondary to Sprycel use Assessment & Plan (03/27/2025 6:30 PM EDT): -stable on olmesartan 20 mg daily -patient's routine labs are completed during his oncology visit. Will have staff attempt to retrieve recent labs and scan into media -ordered urine albumin today Assessment & Plan (03/13/2024 3:14 PM EDT): [...] 09/26/2023 9:00 AM Betina Rodriguez NP MEDICINE [facility] 10/01/2023 1:15 PM Magdalena Muhammad RN MEDICINE [facility] Assessment & Plan (04/29/2023 10:21 PM EDT): [...] daily F/u 3 months Assessment & Plan (03/27/2025 6:28 PM EDT): -managed by oncology at [facility] -continues on Dasatinib 140 mg Assessment & Plan (03/13/2024 3:03 PM EDT): -followed by oncology every 6 months -continues on Dasatinib 140 mg -ibuprofen refilled for intermittent pain Assessment & Plan (04/29/2023 10:25 PM EDT): Care managed by Oncology Continue Sprycel 140mg daily Refill DME Ensure, Vanilla F/u PRN Encounters Date Type Department Care Team Description 03/27/2025 1:45 PM EDT Office Visit [facility] MEDICINE [address] [place] [phone] Betina Rodriguez NP Other secondary hypertension (Primary Dx); Underweight; Colon cancer screening; Chronic myeloid leukemia (CMS/HCC) 03/27/2025 Travel 03/26/2025 Telephone [facility] MEDICINE [address] [place] [phone] Jin Douglas MA chart prep 03/16/2025 1:00 PM EDT Clinical Support [facility] MEDICINE [address] [place] [address] Magdalena Muhammad RN Uncomplicated opioid dependence (CMS/HCC) 03/16/2025 Travel 03/16/2025 Refill [facility] MEDICINE [address] [place] [address] Betina Rodriguez NP Other secondary hypertension 03/10/2025 Refill [facility] MEDICINE [address] [place] [address] Magdalena Muhammad RN Uncomplicated opioid dependence (CMS/HCC) 02/16/2025 Refill [facility] [address], [place] [phone] Betina Rodriguez NP Chronic myeloid leukemia ([facility]/HCC) 01/19/2025 1:15 PM EDT Office Visit [facility] MEDICINE [address] [place] [phone] Doc Ivory MD Uncomplicated opioid dependence ([facility]/HCC) (Primary Dx) 01/19/2025 Travel 01/05/2025 Refill [facility] MEDICINE [address], [place] [phone] Magdalena Muhammad RN Uncomplicated opioid dependence ([facility]/HCC) from Last 3 Months Immunizations Immunization Administration Dates Next Due Hep B, adult [...] Answer Date Recorded Patient Health Questionnaire-9 Score 3 03/27/2025 Patient Health Questionnaire-9 Score 3 03/27/2025 Last PHQ-9: Questionnaire Data Not on file 0 03/27/2025 Housing Stability Answer Date Recorded What is your housing situation today? I do not have housing (Staying with others, in a hotel, in a skilled nursing, living outside on the street, on a beach, in a car, or in a park 03/27/[address] you li ve. Do you have problems with any of the following? None of the above 03/27/2025 Food Insecurity Answer Date Recorded Within the past 12 months, y ou worried that your food would run out before you got money to buy more: Never True 03/27/2025 Within the past 12 months,th e food you bought just didn't last and you didn't have enough money to get more: Never True Transportation Answer Date Recorded In the past 12 months, has l ack of transportation kept you from medical appts, meetings, work or from getting things needed for daily living? No 03/27/2025 Utilities Answer Date Recorded In the past 12 months, has t he electric, gas, oil or water company threatened to shut off services in your home? No 03/27/2025 Depression Answer Date Recorded Patient Health Questionnaire-2 Score 2 03/27/2025 Internet Access Answer Date Recorded Internet Access Q1 No 03/27/2025 Internet Access Q2 I cannot afford it 03/27/2025 Sex and Gender Information Value Date Recorded Sex Assigned at Male 07/03/2022 10:25 AM EDT Legal Sex Male 10:25 AM EDT Gender Identity Male 07/03/2022 10:25 AM EDT Sexual Orientation Straight 07/03/2022 10 :25 AM EDT Last Filed Vital Signs Vital Sign Reading Time Taken Comments Blood Pressure 120/86 03/27/2025 1:38 PM EDT Pulse 80 03/27/2025 1:38 PM EDT Temperature 37.2 C (98.9 F) 03/27/2025 1:38 PM EDT Respiratory Rate 20 03/27/2025 1:38 PM EDT Oxygen Saturation 98% 03/27/2025 1:38 PM EDT Inhaled Oxygen Concentration - - Weight 60.5 kg (133 lb 6.4 oz) 03/27/2025 1:38 P M EDT Height 180.3 cm (5' 11 ) 03/27/2025 1:38 PM EDT Body Mass Index 18.61 03/27/2025 1:38 PM EDT Plan of Treatment Upcoming Encounters Date Type Department Care Team (Late st Contact Info) Description 06/08/2025 1:45 PM EDT Office Visit [facility] MEDICINE [address] [place] [address] Doc Ivory MD [address] [place] [address] 07/10/2025 9:30 AM EST Office Visit [facility] OPTOMETRY [address] [place] [address] Ad, Evelyn, OD [address] [place] [address] Health Maintenance Due Date Last Done Comments CT Colonography 1976 Colonoscopy 1976 Colorectal Cancer Screening 1976 FIT DNA/Cologuard 1976 FIT 1976 FOBT 1976 Sigmoidoscopy 1976 Family Planning (PISQ) 1991 Zoster Vaccines (1 of 2) 1995 COVID-19 Vaccine (3 - Moderna risk series) 04/26/2021 03/29/2021, 03/01/2021 Influenza Vaccine (#1) 2025 Alcohol/Substance Use Screening 03/27/2026 03/27/2025 Depression Screening 03/27/2026 03/27/2025, 03/27/20 Disability Screening 03/27/2026 03/27/2025 SDOH Screening 03/27/2026 03/27/2025 Tobacco Screening 03/27/2026 03/27/2025 DTaP/Tdap/Td Vaccines (2 - Td or Tdap) 10/13/2026 10/13/2016 Lipid Panel 09/27/2028 09/27/2023 RSV Patients and Patients Aged 60 years or older (1 - 1-dose 75+ series) 2051 Hepatitis B Vaccines Discontinued 12/21/2023 Pneumococcal Vaccine: Pediatrics (0 to 5 Years) and At-Risk Patients (6 to 49) Years Completed 12/21/2023 HIV Screening Completed 10/27/2024, 09/04, 04/12/2023, Additional history exists Hepatitis C Screening Completed 10/27/2024 , 04/12/2023, 08/05/2021 HIB Vaccines Aged Out No longer eligi ble based on patient's age to complete this topic HPV Vaccines Aged Out No longer eligi ble based on patient's age to complete this topic Hepatitis A Vaccines Aged Out No long er eligible based on patient's age to complete this topic IPV Vaccines Aged Out No longer eligi ble based on patient's age to complete this topic Meningococcal B Vaccine Aged Out No l onger eligible based on patient's age to complete [...] Comments POCT NEHAL-14 URINE DRUG SCREEN Routine 01/19/2025 1:30 PM EDT Uncomplicated opioid dependence (CMS/HCC) HEPATITIS C AB W/REFL TO HCV RNA, QN, PCR Routine 10/27/2024 1:35 PM EST Uncomplicated opioid dependence (CMS/HCC) HIV 1/2 ANTIGEN/ANTIBODY, FOURTH GENERATION W/RFL Routine 10/27/2024 1:35 PM EST Uncomplicated opioid dependence (CMS/HCC) LIPID PANEL, STANDARD Routine 09/27/2023 9:45 AM EST Underweight from Last 3 Months or Most Recently Relevant to Health Maintenance Results * POCT NEHAL-14 Urine Drug Screen (01/19/2025 1:30 PM EDT) THC Positive Cocaine Screen, Urine Negative Opiate Screen, Urine Negative Methamphetamine Screen Urine Negative Amphetamine Screen, Urine Negative Benzodiazepines Screen, Urine Negative Barbiturate Screen, Urine Negative Methadone Screen, Urine Negative Buprenophine Screen, Urine Positive TCA, Urine Negative MDMA Urine Negative ng/mL Oxycodone Screen, Urine Negative Phencyclidine (PCP), Urine Negative Fentanyl, Urine Negative Urine Urine specimen obtained by clean catch procedure / Unknown 01/19/2025 1:30 PM EDT us Doc Ivory MD POINT OF CARE TEST ENTER/EDIT OR DERABLES Final Result * Hepatitis C Antibody with Reflex to HCV, RNA, Quantitative, Real-Time PCR (10/27/2024 1:35 PM EST) Hepatitis C Antibody Nonreactive Nonreactive [facility] Comment:Antibodies to HCV no t detected; does not exclude early acuteHCV infection. 10/27/2024 1:35 PM EST 10/27/2024 4:01 PM EST us Doc Ivory MD LAB BLOOD ORDERABLES Final Resul t Performing Organization Address [facility] Co de Phone Number [facility] [address] [place] [phone] * HIV-1/2 Antigen and Antibodies, Fourth Generation, with Reflexes (10/27/2024 1:35 PM EST) HIV AB/AG Nonreactive Nonreactive [facility] Comment:HIV-1 p24 Ag and/or HIV-1/HIV-2 Ab not detected.A test result that is nonreactive does not exclude thepossibility of exposure to or infection with HIV-1 and/orHIV-2. Nonreactive results in this assay for individualswith prior exposure to HIV-1 and/or HIV-2 may be due toantigen and antibody levels that are below the limit ofdetection of this assay.The Sk[facility] HIV Ag/Ab Combo assay result andsupplemental assay results should be interpreted inconjunction with the patient's clinical presentation,history and other laboratory results. If the results areinconsistent with clinical evidence, additional testing issuggested to confirm the result. 10/27/2024 1:35 PM EST 10/27/2024 4:01 PM EST us Doc Ivory MD LAB BLOOD ORDERABLES Final Resul t Performing Organization Address [facility] Co de Phone Number [facility] [address] [place] [phone] * (ABNORMAL) Lipid Panel, Standard (09/27/2023 9:45 AM EST) Triglycerides 131 <150 mg/dL [facility] Comment:Desirable Triglyceri de: less than 150 mg/dLBorderline High Triglyceride 150-199 mg/dLHigh Triglyceride: 200-499 mg/dLVery High Triglyceride: greater than or equal to 5OO mg/dL Cholesterol 190 <200 mg/dL [facility] Comment:Desirable Cholestero l: less than 200 mg/dLBorderline High Cholesterol: 200-239 mg/dLHigh Cholesterol: greater than 239 mg/dL LDL Cholesterol Calculated 122(H) <100 mg/dL [facility] Comment:Desirable LDL: less than 100 mg/dLNear Optimal/Above Optimal LDL: 110- 129 mg/dLBorderline High LDL: 130-159 mg/dLHigh LDL: 160-189 mg/dLVery High LDL: greater than or equal to 190 mg/dL HDL Cholesterol 42 >40 mg/dL [facility] Comment:Desirable HDL: great er than 40 mg/dL Note: This HDL assay may give artificially low results in patients with liver disease. Blood Venous blood specimen / Unknown 09/27/2023 9:45 AM EST 09/27/2023 11:36 AM EST us Yuliana Mojica MD LAB BLOOD ORDERABLES Final Re sult [facility] [address] [place] [address] [phone] from Last 3 Months or Most Recently Relevant to Health Maintenance Insurance [employer] C[employer] H[employer] F[employer] Care Teams Radio Message Router Relationship Specialty Start Date End Date Betina Rodriguze NP [address] [place] [phone] PCP - General Family Medicine 06/08/23 Doc Peck MD [facility] Hematology Oncology [facility], [address] [place] [phone] Consulting Physician Hematology and Oncology 08/03/20
[2025-03-30 12:16] LABS: Anion Gap 12 (12-20); Blood Urea Nitrogen 16 mg/dL (9-16); Calcium 8.7 mg/dL (8.4-10.2); Carbon Dioxide 25 mmol/L (22-29); Chloride 108 mmol/L (96-108); Cholesterol 179 mg/dL (<200); Estimated Glomerular Filt Rate 54; HDL Cholesterol 46 mg/dL (>40); Potassium 4.3 mmol/L (3.3-5.1); Sodium 141 mmol/L (135-145); Triglycerides 68 mg/dL (<150)
[2025-03-30 12:32] LABS: Microalbum/Creatinine Ratio Ur 12.3 ug/mg cr (<30)
== END 2025-03-30 08:57 | disposition home or self-care (01) ==
LOC: HO.HHCL 08:56
PROVIDERS: PCP Nurse Practitioner; Visit Provider Nurse Practitioner
DX: E78.49 Other hyperlipidemia (principal); I15.8 Other secondary hypertension
CPT/HCPCS: 36415; 80048; 80061; 82043; 82570